=== PATIENT | female | born 1965 | race Caucasian/White ===

== ENCOUNTER 2018-02-26 11:47 | Inpatient (IN) | payer BC ==
[2018-02-23 14:04] LABS: Urine WBC None Seen /hpf (0 - 5)
[2018-02-23 14:16] LABS: Basophils # (auto) 0.1 uL; Basophils % (auto) 0.6 % (0.0-2.0); Eosinophils # (auto) 0.1 uL; Eosinophils % (auto) 0.9 % (0.0-7.0); Hematocrit 44.4 % (36.0-46.0); Lymphocytes # (auto) 2.9 uL; Lymphocytes % (auto) 28.2 % (10.0-50.0); Mean Corpuscular Hemoglobin 30.8 pg (28.0-32.0); Mean Corpuscular Hgb Conc. 33.8 g/dL (32.0-36.0); Monocytes # (auto) 0.9 uL; Monocytes % (auto) 8.5 % (0.0-12.0); Neutrophils # (auto) 6.5 uL; Neutrophils % (auto) 61.8 % (37.0-80.0); Nucleated Red Blood Cells % 0.1 %; Platelet Count (auto) 221 10^3/uL (140-450); Red Blood Cells 4.87 10^6/uL (4.0-5.20); Red Cell Distribution Width 13.3 % (11.8-14.3); White Blood Cell 10.5 10^3/uL (4.4-10.8)
[2018-02-23 14:21] LABS: Urine Bacteria NONE SEEN /hpf (None Seen); Urine Blood 1+ /uL (Negative); Urine Specific Gravity 1.005 (1.001-1.035)
[2018-02-23 14:31] LABS: INR 0.9 (0.9-1.15); Partial Thromboplastin Time 26.6 sec (23.78-33.04); Prothrombin Time 9.7 sec (9.27-12.13)
[2018-02-23 14:44] LABS: BUN/Creatinine Ratio 16.9; Calcium 8.7 mg/dL (8.5-10.1); Potassium 3.7 mmol/L (3.5-5.1)
[~2018-02-26] VITALS: Ht 160 cm; Wt 70.4 kg
[~2018-02-26 11:47] MED LIST: THYR90TA6 PO
[2018-02-26] MEDS ORDERED: ceFAZolin 1GM/50ML 50 ML IV ONE ×2 (12:24→13:30)
[2018-02-26] MEDS ORDERED: LIDOCAINE W/ EPINEPHRINE 1 % INJ 30ML ONE (12:47)
[2018-02-26] MEDS ORDERED: BUPIVACAINE 0.25% INJ 50ML VIAL ONE (12:48)
[2018-02-26] MEDS ORDERED: LIDOCAINE HCL (LOCAL ANESTH.) 0.5 % 50ML MDV IJ ONE (12:48)
[2018-02-26] MEDS ORDERED: MIDAZOLAM HCL 1MG/1ML-2 ML VIAL ONE (12:52)
[2018-02-26] MEDS ORDERED: HYDROmorphone HCL 2 MG/ML VL ONE (12:52)
[2018-02-26] MEDS ORDERED: fentaNYL CITRATE 100 MCG/2 ML VL ONE (12:52)
[2018-02-26] MEDS ORDERED: SODIUM CHLORIDE LOCK 20 ML ONE (12:53)
[2018-02-26] MEDS ORDERED: ONDANSETRON HCL 4 MG/2 ML VIAL ONE (12:53)
[2018-02-26] MEDS ORDERED: PROPOFOL 10 MG/ML 20 ML IV ONE (12:53)
[2018-02-26] MEDS ORDERED: fentaNYL CITRATE 10 ML ONE (12:53)
[2018-02-26] MEDS ORDERED: ROCURONIUM 10MG/ML 10ML VIAL IV ONE (12:56)
[2018-02-26] MEDS ORDERED: METOCLOPRAMIDE HCL 5MG/ml INJ 2ml VIAL IV ONE (13:00)
[2018-02-26] MEDS ORDERED: KETOROLAC TROMETH 30 MG/ML 1ML VIAL IV ONE (13:00)
[2018-02-26] MEDS ORDERED: HYDROmorphone HCL 2 MG/ML VL IV PRN (13:00)
[2018-02-26] MEDS ORDERED: SUCCINYLCHOLINE CHLORIDE 20 MG/ML 10ML VIAL IV ONE (13:11)
[2018-02-26] MEDS ORDERED: NITROGLYCERIN 0.4 MG SL TAB SL PRN (13:30)
[2018-02-26] MEDS ORDERED: MORPHINE SULFATE 4 MG/ML SYR/VIAL IV PRN (13:30)
[2018-02-26] MEDS ORDERED: MORPHINE SULF INJ 2 MG/ML SYRINGE 1ML IV PRN (13:30)
[2018-02-26] MEDS ORDERED: METHYLENE BLUE 0.5% 5MG/ML 10ml AMP IV ONE (14:24)
[2018-02-26] MEDS ORDERED: GLYCOPYRROLATE 0.2 MG/ML 1ML VIAL ONE (15:09)
[2018-02-26] MEDS ORDERED: KETOROLAC TROMETH 60MG/2ML VIAL IM ONE (15:09)
[2018-02-26] MEDS ORDERED: NEOSTIGMINE 1 MG/ML INJ (10mg/10ML VIAL) ONE (15:09)
[2018-02-26 17:30] VITALS: BP 118/74
[2018-02-26] MEDS: HYDROcodone-ACET 10/325MG TAB PO PRN (19:46)
[2018-02-26] MEDS: SODIUM CHLORIDE 0.9% 1,000 ML IV SCH ×2 (20:00→21:26)
[2018-02-26 21:31] VITALS: BP 117/76
[2018-02-26] MEDS: ONDANSETRON HCL 4 MG/2 ML VIAL IV PRN (21:32)
[2018-02-27 05:10] VITALS: BP 110/70
[2018-02-27] MEDS: SODIUM CHLORIDE 0.9% 1,000 ML IV SCH ×3 (05:26→21:02)
[2018-02-27] MEDS: HYDROcodone-ACET 10/325MG TAB PO PRN ×3 (05:30→20:50)
[2018-02-27 06:39] LABS: Basophils # (auto) 0 uL; Basophils % (auto) 0.1 % (0.0-2.0); Eosinophils # (auto) 0 uL; Hematocrit 37.3 % (36.0-46.0); Lymphocytes # (auto) 1.2 uL; Lymphocytes % (auto) 9.6 % (10.0-50.0); Mean Corpuscular Hemoglobin 31.1 pg (28.0-32.0); Mean Corpuscular Hgb Conc. 34.8 g/dL (32.0-36.0); Mean Corpuscular Volume 89.4 fL (80.0-100.0); Monocytes % (auto) 8.5 % (0.0-12.0); Neutrophils % (auto) 81.8 % (37.0-80.0); Nucleated Red Blood Cells % 0.1 %; Platelet Count (auto) 187 10^3/uL (140-450); Red Blood Cells 4.17 10^6/uL (4.0-5.20); Red Cell Distribution Width 12.9 % (11.8-14.3); White Blood Cell 12.2 10^3/uL (4.4-10.8)
[2018-02-27 09:00] VITALS: BP 128/73
[2018-02-27 13:00] VITALS: BP 136/79
[2018-02-27] MEDS: ONDANSETRON HCL 4 MG/2 ML VIAL IV PRN ×2 (14:50→20:49)
[2018-02-27 17:00] VITALS: BP 126/70
[2018-02-27 21:35] VITALS: BP 149/88
[2018-02-28] MEDS: ACETAMINOPHEN 500 MG TAB PO PRN ×2 (01:04→07:10)
[2018-02-28] MEDS: SODIUM CHLORIDE 0.9% 1,000 ML IV SCH ×2 (04:06→14:23)
[2018-02-28 04:40] VITALS: BP 126/74
[2018-02-28] MEDS: ONDANSETRON HCL 4 MG/2 ML VIAL IV PRN ×2 (07:10→13:04)
[2018-02-28] MEDS: HYDROcodone-ACET 10/325MG TAB PO PRN ×2 (08:29→16:04)
[2018-02-28 08:54] VITALS: BP 145/85
[2018-02-28 12:30] VITALS: BP 131/80
[2018-02-28 16:29] VITALS: BP 153/93
[2018-02-28 17:06] VITALS: BP 145/85
== END 2018-02-28 18:43 | disposition home or self-care (01) | DRG 743 ==
LOC: SUR 11:47 → WEST WING 11:48
PROVIDERS: ADMIT Obstetrics & Gynecology; ATTEND Obstetrics & Gynecology
PROC: 0UT74ZZ Resection of Bilateral Fallopian Tubes, Percutaneous Endoscopic Approach (ICD-10-PCS; 2018-02-26)
PROC: 0UT24ZZ Resection of Bilateral Ovaries, Percutaneous Endoscopic Approach (ICD-10-PCS; 2018-02-26)
PROC: 0USG4ZZ Reposition Vagina, Percutaneous Endoscopic Approach (ICD-10-PCS; 2018-02-26)
PROC: 8E0W4CZ Robotic Assisted Procedure of Trunk Region, Percutaneous Endoscopic Approach (ICD-10-PCS; 2018-02-26)
PROC: 0UT94ZL Resection of Uterus, Supracervical, Percutaneous Endoscopic Approach (ICD-10-PCS; principal; 2018-02-26 13:11)
DX: N81.2 Incomplete uterovaginal prolapse (principal); N73.6 Female pelvic peritoneal adhesions (postinfective); E03.9 Hypothyroidism, unspecified; I10 Essential (primary) hypertension; Z83.3 Family history of diabetes mellitus; Z82.49 Family history of ischemic heart disease and other diseases of the circulatory system; Z87.891 Personal history of nicotine dependence
CPT/HCPCS: 36415; 80048; 81001; 85025; 85610; 85730; 86850; 86900; 86901; 87086; A6257; J0330; J0690; J1885; J2250; J2405; J2704; J3490

== ENCOUNTER 2018-05-22 17:35 | Emergency (ER) | payer BC ==
[~2018-05-22] VITALS: Ht 160 cm; Wt 68.9 kg
[2018-05-22 18:47] LABS: Urine Bacteria NONE SEEN /hpf (None Seen); Urine Blood 3+ /uL (Negative); Urine Mucus FEW (None Seen); Urine Specific Gravity 1.013 (1.001-1.035); Urine WBC 30 /hpf (0 - 5)
[2018-05-22] MEDS ORDERED: ONDANSETRON HCL 4 MG/2 ML VIAL IV ONE (19:15)
[2018-05-22] MEDS ORDERED: MORPHINE SULFATE 4 MG/ML SYR/VIAL IV ONE (19:15)
[2018-05-22] MEDS ORDERED: SODIUM CHLORIDE 0.9% 1,000 ML IV ONE (19:15)
[2018-05-22 19:18] LABS: Basophils # (auto) 0.1 uL; Basophils % (auto) 0.5 % (0.0-2.0); Eosinophils # (auto) 0.1 uL; Eosinophils % (auto) 0.5 % (0.0-7.0); Hematocrit 42.3 % (36.0-46.0); Hemoglobin 14.7 g/dL (12.2-16.2); Lymphocytes # (auto) 3.3 uL; Lymphocytes % (auto) 24.3 % (10.0-50.0); Mean Corpuscular Hemoglobin 30.7 pg (28.0-32.0); Mean Corpuscular Hgb Conc. 34.7 g/dL (32.0-36.0); Mean Corpuscular Volume 88.4 fL (80.0-100.0); Monocytes % (auto) 7.2 % (0.0-12.0); Neutrophils # (auto) 9.1 uL; Neutrophils % (auto) 67.5 % (37.0-80.0); Nucleated Red Blood Cells % 0.1 %; Platelet Count (auto) 260 10^3/uL (140-450); Red Blood Cells 4.79 10^6/uL (4.0-5.20); Red Cell Distribution Width 13.6 % (11.8-14.3); White Blood Cell 13.5 10^3/uL (4.4-10.8)
[2018-05-22 19:35] LABS: Albumin 3.9 g/dL (3.4-5.0); Calcium 8.3 mg/dL (8.5-10.1); Potassium 3.4 mmol/L (3.5-5.1)
[2018-05-22 19:40] LABS: BUN/Creatinine Ratio 17.3; Bilirubin, Total 0.4 mg/dL (0.2-1.0); Total Protein 7.6 g/dL (6.4-8.2)
[2018-05-22] MEDS ORDERED: cefTRIAXone 1GM/50ML D5W 50 ML IV ONE (22:45)
[2018-05-22 23:00] VITALS: BP 145/78
== END 2018-05-23 00:06 | disposition home or self-care (01) ==
LOC: ER 17:42
DX: N39.0 Urinary tract infection, site not specified (principal); A49.9 Bacterial infection, unspecified; N93.9 Abnormal uterine and vaginal bleeding, unspecified; Z90.710 Acquired absence of both cervix and uterus
CPT/HCPCS: 36415; 74176; 76856; 80053; 81001; 85025; 96365; 96375; 99284; J0696; J2270; J2405; J7030; 76830